=== PATIENT | female | born 1940 | race Hispanic/Latino ===

== ENCOUNTER 2018-07-17 07:15 | Observation (INO) | payer MEDICARE, OTHER ==
[2018-07-15 12:40] VITALS: BP 177/92
[2018-07-15 12:47] LABS: BASOPHILS % (AUTO) 0.6 % (0.0-5.0); EOSINOPHILS % (AUTO) 1.5 % (0.0-8.0); HEMATOCRIT 40.7 % (36-48); LYMPHOCYTES % (AUTO) 32.6 % (21.0-51.0); MEAN CORPUSCULAR HEMOGLOBIN 30.3 pg (27.0-33.0); MEAN CORPUSCULAR HGB CONC 33.7 g/dL (32.0-36.0); MONOCYTES % (AUTO) 6.6 % (3.0-13.0); NEUTROPHILS % (AUTO) 58.7 % (40.0-77.0); PLATELET COUNT (AUTO) 286 K/uL (130-400); RED BLOOD CELL COUNT(AUTO) 4.53 MIL/uL (4.00-5.50); RED CELL DISTRIBUTION WIDTH 13.3 % (11.0-15.5); WHITE BLOOD COUNT (AUTO) 7.2 K/uL (4.8-10.8)
[2018-07-15 12:55] LABS: CREATININE 0.9 mg/dL (0.5-1.5); POTASSIUM 4.4 mmol/L (3.5-5.1)
[2018-07-15 13:00] LABS: INR 0.96 (0.85-1.15); PARTIAL THROMBOPLASTIN TIME 26.7 SEC (26.3-35.5); PROTHROMBIN TIME 10.1 SEC (9.6-11.6)
[2018-07-17] VITALS (8 sets, daily range): BP systolic 123–170; BP diastolic 64–76
[~2018-07-17] VITALS: Ht 158.8 cm; Wt 67.6 kg
[~2018-07-17 07:15] MED LIST: BRIM15OS OU; ENAL20TA PO; LORA2TAB2 PO; OMEGA XL PO; OMEP20TA25 PO; VYZULTA 0.024% OU
[2018-07-17] MEDS: SODIUM CHLORIDE 0.9% 1000ML 1,000 ML IV SCH (08:02)
[2018-07-17] MEDS ORDERED: KRIL1CAP24 PO (08:17)
[2018-07-17] MEDS ORDERED: HEPARIN SODIUM 1000UNIT/ML 10ML VIAL ONE (14:39)
[2018-07-17] MEDS ORDERED: LIDOCAINE HCL 2% 20ML ONE ×2 (14:39→15:18)
[2018-07-17] MEDS ORDERED: MIDAZOLAM HCL 1 MG/ML 2ML VIAL ONE (14:55)
[2018-07-17] MEDS ORDERED: MEPERIDINE-PF 25 MG/ML SYG ONE (14:55)
[2018-07-17] MEDS ORDERED: ISOPROTERENOL HCL 0.2 MG/ML AMP/VIAL/BAG ONE (15:49)
[2018-07-17] MEDS ORDERED: VYZULTA 0.024% OU SCH (21:00)
[2018-07-17] MEDS ORDERED: LORAZEPAM 1 MG TABLET PO SCH (21:00)
[2018-07-17] MEDS ORDERED: BRIMONIDINE TARTRATE 0.2% 5 ML BOTTLE OU SCH (21:00)
--- NOTE | 2018-07-17 22:00 | NUR ---
PT IN BED, COUSIN AT BEDSIDE. NO DISTRESS NOTED. ABLE TO AMBULATE WITH NO ASSISTANCE. RIGHT GROIN IS SOFT AND HAS MINOR TENDERNESS. NO DISCHARGE NOTED. NO PAIN STATED. PULSES PALPABLE. CONNECTED TO IV FLUIDS UNTIL THE AM. PT HAD ABLATION, HAS BEEN STABLE. AAOX3. PERRLA. TUNIS[place] AND [place] SPEAKING. BED REST WAS OVER AT 2030. PT HAS BEEN AMBULATING.
[2018-07-18] MEDS: SODIUM CHLORIDE 0.9% 1000ML 1,000 ML IV SCH (01:29)
[2018-07-18 03:00] VITALS: BP 129/68
--- NOTE | 2018-07-18 07:30 | NUR ---
ASSESSMENT ENCOUNTERED PT A&OX3, CALM COOPERATIVE AND DOES NOT APPEAR TO BE IN ANY DISTRESS NOR ANY NEURO DEFICITS PRESENT. PT DENIES PAIN, SOB, NAUSEA. RT GROIN SOFT, NONTENDER WITH NO OOZING OR HEMATOMA PRESENT. PT IS AMBULATORY, GAIT STEADY AND STRONG WITH STAND BY ASSIST. CALL LIGHT WITHIN REACH, FAMILY AT BEDSIDE.
[2018-07-18 07:54] VITALS: BP 150/98
[2018-07-18] MEDS ORDERED: PANTOPRAZOLE SODIUM 40 MG TABLET.DR PO SCH (09:00)
[2018-07-18] MEDS ORDERED: ENALAPRIL MALEATE 10 MG TABLET PO SCH (09:00)
[2018-07-18 11:49] VITALS: BP 163/89
--- NOTE | 2018-07-18 13:28 | NUR ---
DISCHARGE INSTRUCTIONS GIVEN, PIV REMOVED AND INTACT, DISCHARGED HOME TO FAMILY VEHICLE VIA WHEELCHAIR.
== END 2018-07-18 13:05 | disposition home or self-care (01) ==
LOC: DAH 07:15 → DAHIP 07:16 → DAH 07:16 → 2DH 17:26
PROVIDERS: ADMIT Internal Medicine; ATTEND Internal Medicine
DX: I49.3 Ventricular premature depolarization (principal); I10 Essential (primary) hypertension; K21.9 Gastro-esophageal reflux disease without esophagitis; Z79.899 Other long term (current) drug therapy; Z79.01 Long term (current) use of anticoagulants
CPT/HCPCS: 36415; 80048; 85025; 85610; 85730; 93005 ×2; 93623; 93653; A4606; A4649; C1730; C1732; C1894; G0378 ×30; J1644 ×2; J2175; J2250; J3490 ×3; J7030; 99156; 99157